=== PATIENT | female | born 1985 | race Caucasian/White ===

== ENCOUNTER 2019-07-04 15:26 | Emergency (ER) | payer OTHER ==
--- NOTE | 2019-07-04 16:13 | XRAY Report ---
Reason: Chest Pain Procedure Date: 07/04/2019 Accession Number: [id number] / [id number] Procedure: XR - Chest 1 View X-Ray CPT Code: 62885 Final Report FULL RESULT: EXAM: CHEST RADIOGRAPHY EXAM DATE: 07/04/2019 03:58 PM. CLINICAL HISTORY: Chest Pain. COMPARISON: None. TECHNIQUE: 1 view. FINDINGS: Lungs/Pleura: No focal opacities evident. No pleural effusion. No pneumothorax. Mediastinum: Within exam limitations, the cardiomediastinal contour is normal. Other: None. IMPRESSION: Normal single view chest. RADIA
[2019-07-04 16:31] LABS: BASOPHILS % (AUTO) 0.2 %; EOSINOPHILS # (AUTO) 0.1 10^3/uL (0.0-0.7); EOSINOPHILS % (AUTO) 1.5 %; HGB - HEMOGLOBIN 14.6 g/dL (12.0-16.0); LYMPHOCYTES # (AUTO) 2.2 10^3/uL (1.5-3.5); MEAN CORPUSCULAR HEMOGLOBIN 30.3 pg (27.0-31.0); MEAN CORPUSCULAR HGB CONC 33.4 g/dL (32.0-36.0); MEAN CORPUSCULAR VOLUME 90.7 fL (81.0-99.0); MEAN PLATELET VOLUME 10.9 fL (7.9-10.8); MONOCYTES # (AUTO) 0.6 10^3/uL (0.0-1.0); MONOCYTES % (AUTO) 6.9 %; NEUTROPHILS # (AUTO) 5.6 10^3/uL (1.5-6.6); PLT - PLATELET COUNT 324 10^3/uL (130-450); RED BLOOD COUNT 4.82 10^6/uL (4.20-5.40); WHITE BLOOD COUNT 8.6 x10^3/uL (4.8-10.8)
[2019-07-04 16:44] LABS: ALBUMIN 4.4 g/dL (3.2-5.5); ALBUMIN/GLOBULIN RATIO 1.3 (1.0-2.2); BILIRUBIN,TOTAL 0.4 mg/dL (0.2-1.0); CALCIUM 8.9 mg/dL (8.5-10.3); CREATININE 0.7 mg/dL (0.4-1.0); TOTAL PROTEIN 7.9 g/dL (6.7-8.2)
--- NOTE | 2019-07-04 17:29 | ED Physician Documentation ---
PD HPI CHEST PAIN - Stated complaint Stated Complaint: HEART PALPITATIONS,DIZZINESS, SOB - Chief complaint Chief Complaint: Cardiac - History obtained from History obtained from: Patient - History of Present Illness Timing - onset: How many weeks ago (2-3) Timing - duration: Weeks Timing - details: Intermittant (she notes feeling of skips and surges in heart rhythm/chest at times, more frequent the past few weeks. Notes it at rest at times. Not usually when going to bed. Does feel it more with mild activity and some times dyspnea with it. She says she can exercise briskly and feels okay without dyspnea nor palpitations. Has been losing weight through calorie control and food choices. No ketotic diet nor diet pills. Drinks few cups coffee/soda d aily. No nicotine.) Quality: No: Sharp, Tearing, Pain Location: Substernal, Left chest (feeling of skips and pounding intermittently) Improved by: Rest Worsened by: No: Inspiration, Movement Associated symptoms: Shortness of air, Feeling faint / dizzy (at times if they are frequent palpitations), Palpitations Recently seen: Clinic (seen by PMD and is getting referral for Holter through [facility]. This is still in process.) Review of Systems Constitutional: denies: Fever, Chills Nose: denies: Rhinorrhea / runny nose, Congestion Throat: denies: Sore throat Cardiac: reports: Palpitations. denies: Chest pain / pressure, Pedal edema, Calf pain Respiratory: reports: Dyspnea (at times). denies: Cough GI: denies: Nausea, Vomiting, Diarrhea Neurologic: denies: Generalized weakness, Focal weakness, Numbness, Near syncope Endocrine: reports: Weight loss (purposeful over past few months, lost about 17 lbs the past month.) PD PAST MEDICAL HISTORY - Past Medical History Cardiovascular: Arrhythmia Respiratory: None Neuro: None Endocrine/Autoimmune: None - Present Medications Home Medications: Ambulatory Orders Medication Instructions Recorded Confirmed Magnesium Oxide [Mag Ox] 400 mg PO DAILY #20 tablet 07/04/19 Potassium Chloride 10 meq PO DAILY #20 capsule.er 07/04/19 - Allergies Allergies/Adverse Reactions: Allergies Allergy/AdvReac Type Severity Reaction Status Date / Time Penicillins Allergy Rash Verified 07/04/19 15:34 - Living Situation Living Situation: reports: With spouse/s.o. Living Arrangement: reports: At home - Social History Does the pt smoke?: No Smoking Status: Never smoker Does the pt have substance abuse?: No - Family History Family history: reports: CAD. denies: Sudden PD ED PE NORMAL - Vitals Vital signs reviewed: Yes - General General: Alert and oriented X 3, No acute distress, Well developed/nourished - HEENT HEENT: Pharynx benign - Neck Neck: Supple, no meningeal sign, No adenopathy - Cardiac Cardiac: RRR, No murmur - Respiratory Respiratory: Clear bilaterally - Abdomen Abdomen: Soft, Non tender - Derm Derm: Normal color, Warm and dry - Extremities Extremities: Normal ROM s pain, No edema, No calf tenderness / cord - Neuro Neuro: Alert and oriented X 3, No motor deficit, Normal speech Results - Vitals Vitals: Vital Signs - 24 hr 07/04/19 07/04/19 15:34 18:09 Temperature 36.6 C 37.0 C Heart Rate 92 72 Respiratory 16 12 Rate Blood Pressure 140/90 H 128/79 O2 Saturation 97 97 Oxygen O2 Source Room air - EKG (time done) 15:37 Rate: Rate (enter#) (97) Rhythm: NSR, Other (occasional PVCs) [place]: Normal Intervals: Normal [place] QRS: Normal Ischemia: Normal ST segments. No: ST elevation c/w ischemia, ST depression - Labs Labs: Laboratory Tests 07/04/19 07/04/19 07/04/19 16:25 16:25 16:25 WBC 8.6 RBC 4.82 Hgb 14.6 Hct 43.7 MCV 90.7 MCH 30.3 MCHC 33.4 RDW 13.0 Plt Count 324 MPV 10.9 H Neut # (Auto) 5.6 Lymph # (Auto) 2.2 [place] # (Auto) 0.6 Eos # (Auto) 0.1 Baso # (Auto) 0.0 Absolute Nucleated RBC 0.00 Nucleated RBC % 0.0 Sodium 134 L Potassium 3.3 L Chloride 101 Carbon Dioxide 23 Anion Gap 10.0 BUN 10 Creatinine 0.7 Estimated GFR (MDRD) 96 Glucose 124 H Calcium 8.9 Magnesium Total Bilirubin 0.4 AST 15 ALT 21 Alkaline Phosphatase 57 Troponin I High Sens < 2.3 L Total Protein 7.9 Albumin 4.4 Globulin 3.5 Albumin/Globulin Ratio 1.3 Lipase 29 TSH 07/04/19 07/04/19 16:25 16:25 WBC RBC Hgb Hct MCV MCH MCHC RDW Plt Count MPV Neut # (Auto) Lymph # (Auto) [place] # (Auto) Eos # (Auto) Baso # (Auto) Absolute Nucleated RBC Nucleated RBC % Sodium Potassium Chloride Carbon Dioxide Anion Gap BUN Creatinine Estimated GFR (MDRD) Glucose Calcium Magnesium 2.3 Total Bilirubin AST ALT Alkaline Phosphatase Troponin I High Sens Total Protein Albumin Globulin Albumin/Globulin Ratio Lipase TSH 0.65 - Rads (name of study) chest xray Radiology: Prelim report reviewed (no a cute process. normal heart size. ), See rad report PD MEDICAL DECISION MAKING - ED course Complexity details: reviewed results (potassium mildly low. Unable to get ECHO at this time of day, and I don't feel it is urgent, so can get outpt. Her PCP is already arranging Holter, and would suggest ECHO as well. Add potassium and Mag, as usually helpful with palpitations. Has just PVCs on ECG here. Already on propranolol low dose, and will defer to PCP about raising this or not. She says her BP is usually on low side, so I did not want to increase dose just yet (even though BP slightly high today in ER initially, it went down to 128/79). ), co nsidered differential (has feeling of palpitations at rest at times, but also notes then with walking and mild activity. She says she does not feel them with brisk exercise. Does drink few coffees/sodas per day. No nicotine. Has been loosing weight but not keto/montanez type diets. No change in meds. ), d/w patient ED course: Discontinue caffeine. Stay well hydrated. Add potassium and Mag. have PMD add ECHO to the planned Holter for workup outpt. Departure - Departure Disposition: 01 Home, Self Care Clinical Impression: Heart palpitations Dyspnea Qualifiers: Dyspnea type: dyspnea on exertion Qualified Code(s): R06.09 - Other forms of dyspnea Condition: Stable Record reviewed to determine appropriate education?: Yes Instructions: ED Palpitations Follow-Up: NICOL GUZMAN MD [Primary Care Provider] - Prescriptions: Magnesium Oxide [Mag Ox] 400 mg PO DAILY #20 tablet Potassium Chloride 10 meq PO DAILY #20 capsule.er Comments: Stay well-hydrated. Decrease and minimize and try to eliminate caffeine use overall. You may notice an improvement in the PVCs over a week or 2 after that. Your potassium was low here and will affect the degree of palpitations. Add both of potassium and magnesium supplements for the next few weeks. Follow-up with your primary care regarding the Holter monitor. I would also suggest that he order a ultrasound of the heart called an echocardiogram to ensure no structural or valvular problems associated with palpitations. Recheck if worsening symptoms or if not improving well over the next few days. Discharge Date/Time: 07/04/19 18:26
[2019-07-04] MEDS ORDERED: MAGNESIUM OXIDE 400 MG TABLET PO STA (17:59)
[2019-07-04] MEDS ORDERED: POTASSIUM CHLORIDE 20 MEQ TABLET PO STA (17:59)
[2019-07-04 18:10] VITALS: BP 128/79
== END 2019-07-04 18:26 | disposition home or self-care (01) ==
LOC: ED 15:26
DX: R00.2 Palpitations (principal); R06.09 Other forms of dyspnea
CPT/HCPCS: 36415; 71045; 83690; 83735; 84484; 93005; 99284; A9270; 80053; 84443; 85025

== ENCOUNTER 2020-12-16 22:47 | Outpatient (CLI) | payer OTHER | END 2020-12-16 22:48 | disposition critical access hospital (66) | LOC: EMS 22:47 | DX: R00.2 Palpitations (principal); R42 Dizziness and giddiness | CPT/HCPCS: A0425; A0427 ==

== ENCOUNTER 2020-12-16 23:11 | Emergency (ER) | payer OTHER ==
--- NOTE | 2020-12-16 23:41 | ED Physician Documentation ---
History of Present Illness - Stated complaint Stated Complaint: DIZZINESS - Chief complaint Chief Complaint: Cardiac - History obtained from History obtained from: Patient - Additonal information Additional information: 35-year-old woman 2 weeks status post gastrectomy at [facility] presents with intermittent lightheadedness for the past week with black vision occurring while standing suddenly. She stopped taking propanolol a couple days ago and given today after having another dizzy spell. Patient notes that on her Bourgeois watch her heart rate got down as low as 42 today. She does endorse drinking and eating less since the gastrectomy has been getting about 40 ounces of water daily. Review of Systems Ten Systems: 10 systems reviewed and negative Constitutional: denies: Fever, Chills Cardiac: reports: Palpitations. denies: Chest pain / pressure Respiratory: denies: Dyspnea Neurologic: reports: Other (Lightheadedness) PD PAST MEDICAL HISTORY - Past Medical History Cardiovascular: Arrhythmia Respiratory: None Neuro: None Endocrine/Autoimmune: None - Present Medications Home Medications: Ambulatory Orders Medication Instructions Recorded Confirmed Bupropion HCl [Wellbutrin Xl] 300 mg PO DAILY 12/16/20 12/16/20 Escitalopram Oxalate 20 mg PO DAILY 12/16/20 12/16/20 Omeprazole Magnesium 20 mg PO DAILY 12/16/20 12/16/20 Propranolol [Inderal] 10 mg PO BID 12/16/20 12/16/20 traZODone [Desyrel] 50 mg PO QPM 12/16/20 12/16/20 - Allergies Allergies/Adverse Reactions: Allergies Allergy/AdvReac Type Severity Reaction Status Date / Time Penicillins Allergy Rash Verified 12/16/20 23:23 - Social History Does the pt smoke?: No Smoking Status: Never smoker Does the pt have substance abuse?: No PD ED PE NORMAL - Vitals Vital signs reviewed: Yes - General General: Alert and oriented X 3, No acute distress, Well developed/nourished - HEENT HEENT: Atraumatic, PERRL, EOMI - Neck Neck: Supple, no meningeal sign - Cardiac Cardiac: RRR - Respiratory Respiratory: No respiratory distress, Clear bilaterally - Abdomen Abdomen: Non tender, Non distended - Derm Derm: Normal color, Warm and dry - Neuro Neuro: Alert and oriented X 3, hand launderer 2-12 intact, No motor deficit, No sensory deficit - Psych Psych: Normal mood, Normal affect Results - Vitals Vitals: Vital Signs - 24 hr 12/16/20 12/16/20 12/16/20 23:10 23:21 23:32 Temperature 36.4 C L 36.5 C Heart Rate 72 72 Heart Rate [ 85 Sitting] Heart Rate [ 98 Standing] Heart Rate [ 92 Supine] Respiratory 20 20 Rate Blood Pressure 137/72 H 137/72 H Blood Pressure 136/93 H [Sitting] Blood Pressure 115/97 H [Standing] Blood Pressure 121/70 [Supine] O2 Saturation 98 98 12/17/20 12/17/20 12/17/20 00:10 00:50 01:25 Temperature 36.8 C Heart Rate 77 82 77 Heart Rate [ Sitting] Heart Rate [ Standing] Heart Rate [ Supine] Respiratory 12 16 17 Rate Blood Pressure 117/62 117/86 H 131/91 H Blood Pressure [Sitting] Blood Pressure [Standing] Blood Pressure [Supine] O2 Saturation 99 97 100 Oxygen O2 Source Room air - EKG (time done) 2319 Rate: Rate (enter#) (91) Rhythm: NSR [place]: Normal Intervals: Normal [place] QRS: Normal Ischemia: Normal ST segments - Labs Labs: Laboratory Tests 12/17/20 12/17/20 00:20 00:20 WBC 9.7 RBC 4.79 Hgb 14.0 Hct 42.3 MCV 88.3 MCH 29.2 MCHC 33.1 RDW 13.5 Plt Count 264 MPV 12.0 H Neut # (Auto) 5.8 Lymph # (Auto) 3.0 [place] # (Auto) 0.7 Eos # (Auto) 0.1 Baso # (Auto) 0.0 Absolute Nucleated RBC 0.00 Nucleated RBC % 0.0 Sodium 137 Potassium 3.4 L Chloride 101 Carbon Dioxide 24 Anion Gap 12.0 BUN 12 Creatinine 0.7 Estimated GFR (MDRD) 95 Glucose 93 Calcium 9.4 Total Bilirubin 0.7 AST 19 ALT 41 Alkaline Phosphatase 53 Total Protein 7.6 Albumin 4.4 Globulin 3.2 Albumin/Globulin Ratio 1.4 Lipase 36 PD MEDICAL DECISION MAKING - ED course ED course: 35-year-old woman presents for evaluation of multiple presyncopal episodes. She did get lightheaded while taking orthostatic vital signs when she went from lying down to standing up but improved after administration of IVF. EKG noncontributory and labs are okay. Advised patient to follow-up with her primary doctor. She may need an event monitor if she continues to have these episodes despite increasing her fluid intake. Strict return precautions given. Departure - Departure Disposition: 01 Home, Self Care Clinical Impression: Lightheadedness Condition: Good Instructions: ED Near Syncope Unkn Comments: You are seen in the emergency department for episodes of lightheadedness. Your EKG, vital signs and physical exam are normal. Your sugar was 85 in the emergency department. Please follow-up with your primary doctor for further kristen luation. They may consider placing you on an event monitor if you have further episodes.Return to the emergency department if you have any new or worsening symptoms or other concerns. Discharge Date/Time: 12/17/20 01:30
[2020-12-16] MEDS ORDERED: SODIUM CHLORIDE 0.9% 1,000 ML IV STA (23:42)
[2020-12-17 00:24] LABS: BASOPHILS % (AUTO) 0.3 %; EOSINOPHILS # (AUTO) 0.1 10^3/uL (0.0-0.7); EOSINOPHILS % (AUTO) 1.2 %; HCT - HEMATOCRIT 42.3 % (37.0-47.0); LYMPHOCYTES % (AUTO) 31.2 %; MEAN CORPUSCULAR HEMOGLOBIN 29.2 pg (27.0-31.0); MEAN CORPUSCULAR HGB CONC 33.1 g/dL (32.0-36.0); MEAN CORPUSCULAR VOLUME 88.3 fL (81.0-99.0); MONOCYTES # (AUTO) 0.7 10^3/uL (0.0-1.0); MONOCYTES % (AUTO) 7.1 %; NEUTROPHILS # (AUTO) 5.8 10^3/uL (1.5-6.6); NEUTROPHILS % (AUTO) 59.9 %; PLT - PLATELET COUNT 264 10^3/uL (130-450); RED BLOOD COUNT 4.79 10^6/uL (4.20-5.40); RED CELL DISTRIBUTION WIDTH 13.5 % (12.0-15.0); WHITE BLOOD COUNT 9.7 x10^3/uL (4.8-10.8)
[2020-12-17 00:37] LABS: ALBUMIN 4.4 g/dL (3.2-5.5); ALBUMIN/GLOBULIN RATIO 1.4 (1.0-2.2); BILIRUBIN,TOTAL 0.7 mg/dL (0.2-1.0); CALCIUM 9.4 mg/dL (8.5-10.3); CREATININE 0.7 mg/dL (0.4-1.0); POTASSIUM 3.4 mmol/L (3.5-5.0); TOTAL PROTEIN 7.6 g/dL (6.7-8.2)
[2020-12-17 01:31] VITALS: BP 131/91
== END 2020-12-17 01:30 | disposition home or self-care (01) ==
LOC: EDUNIT# → ED 23:11
DX: R42 Dizziness and giddiness (principal)
CPT/HCPCS: 36415; 80053; 83690; 85025; 93005; 99282; 99284